=== PATIENT | male | born 1940 | race Caucasian/White ===

== ENCOUNTER 2020-07-04 14:56 | Emergency (ER) | payer MEDICARE, BC, SELFPAY ==
[2020-07-04 15:03] VITALS: BP 163/78; PULSE 60; RESP 18; TEMP 36.6; O2SAT 95
--- NOTE | 2020-07-04 15:18 | DI.RAD.S_ITS ---
PROCEDURE: XR FINGER LT MIN 2V INDICATIONS: index laceration from a metal TECHNIQUE: AP hand, 2 views of the left index finger(s) acquired. COMPARISON: None. FINDINGS: Bones: No acute fractures or dislocations. Degenerative changes of the left hand most pronounced in the triscaphe joint, 1st carpometacarpal joint, 1st metacarpophalangeal joint, and 1st interphalangeal joint. No suspicious bony lesions. Soft tissues: There is a soft tissue defect overlying the dorsal aspect of the left index finger at the level of the proximal interphalangeal joint. No underlying osseous abnormalities or radiopaque soft tissue foreign bodies. No suspicious soft tissue calcifications. IMPRESSION: Soft tissue defect involving the dorsal aspect of the left index finger at the level of the proximal interphalangeal joint without underlying osseous abnormalities or radiopaque soft tissue foreign bodies. Dictated by: Piotr Marshall M.D. on 07/04/2020 at 15:39 Approved by: Piotr Marshall M.D. on 07/04/2020 at 15:42
[2020-07-04] MEDS: LIDO 1%/SOD BICARB 8.4% (10ML) 10 ML SYRINGE INJ (15:54)
[2020-07-04] MEDS: BACITRACIN OINT 0.9 GM PCKT 1 APPLIC TOP (15:55)
--- NOTE | 2020-07-04 16:18 | ED.WOUNDLAC ---
HPI - Wound/Laceration <GINA Avila - Last Filed: 07/04/20 16:29> General Chief Complaint: Wound/Laceration Stated Complaint: lt index finger cut Time Seen by Provider: 07/04/20 15:02 Source: patient Mode of arrival: Ambulatory Limitations: no limitations History of Present Illness HPI narrative: This is a pleasant 79-year-old male, nonsmoker, who has noncontributory medical history presents to ED with chief complain of laceration on dorsal aspect of left index finger from a metal of the lawnmower. Patient reports he was trying to loosen the wheel of the bundle packer and accidentally had lacerated non dominant hand left index finger. Last tetanus immunization was September this year. Patient reports is able to flex and extend finger without difficulty and has intact sensation. Patient also minor abrasion on right little fingers. Related Data Home Medications Medication Instructions Recorded Confirmed Lumigan 1 drp EAR-BOTH 07/04/20 Pepcid AC PRN PRN 07/04/20 atorvastatin [Lipitor] 20 mg PO DAILY 07/04/20 07/04/20 Allergies Allergy/AdvReac Type Severity Reaction Status Date / Time Sulfa (Sulfonamide Allergy Verified 07/04/20 15:06 Antibiotics) Review of Systems <GINA Avila - Last Filed: 07/04/20 16:29> Review of Systems Narrative: General: Denies fever, chills, fatigue, malaise, sweats. Respiratory: Denies dyspnea, cough, wheezing, hemoptysis, sputum. Cardiovascular: Denies chest pain, palpitations, orthopnea, edema. Musculoskeletal: Denies weakness, joint pain or bony pain. Skin: See HPI Patient History <GINA Avila - Last Filed: 07/04/20 16:29> Medical History (Updated 07/04/20 @ 16:21 by GINA Avila) Glaucoma (Acute) Hyperlipidemia (Acute) Social History Smoking Status: Never smoker Smoking Status: Never smoker alcohol intake frequency: 0-2 drinks per day Exam <GINA Avila - Last Filed: 07/04/20 16:29> Narrative Exam Narrative: General appearance: well developed, well nourished, in no acute distress. Head: normocephalic, atraumatic, no scalp lesions, non-tender. ENT: Hearing grossly intact. Airway patent. Neck/Thyroid: neck supple, full range of motion, no visible masses or meningeal signs. No JVD, non-tender without lymphadenopathy. Skin: 3 cm linear laceration on dorsal aspect of left index finger crossing proximal and medial phalanx. No obvious foreign body appreciated. Warm and dry and appropriate color for ethnicity. Heart: no clubbing, no cyanosis, no edema. S1 and S2 normal. RRR w/o murmurs, clicks, or bruits. Lungs: Breathing even and unlabored. No stridor. No accessory muscles used. Able to speak in full sentences. Chest: normal shape and expansion. Abdomen: non-obese, non-distended. Neurologic: alert and oriented. Cognitive exam, [employer] and PNS grossly intact on informal exam. Psych: good eye contact, normal affect. Initial Vital Signs Initial Vital Signs: Vital Signs Temperature 97.9 F 07/04/20 15:03 Pulse Rate 60 07/04/20 15:03 Respiratory Rate 18 07/04/20 15:03 Blood Pressure 163/78 H 07/04/20 15:03 Pulse Oximetry 95 07/04/20 15:03 Extrem Left upper extremity: hand Details: abnormal to inspection, normal capillary refill, neuromotor exam normal, neurosensory exam normal, vascular exam Details: radial pulse present, normal ROM of fingers, no swelling and laceration; no foreign bodies <Marylu Arredondo DO - Last Filed: 07/05/20 08:23> Initial Vital Signs Initial Vital Signs: Vital Signs Temperature 97.9 F 07/04/20 15:03 Pulse Rate 60 07/04/20 15:03 Respiratory Rate 18 07/04/20 15:03 Blood Pressure 163/78 H 07/04/20 15:03 Pulse Oximetry 95 07/04/20 15:03 Procedures <GINA Avila - Last Filed: 07/04/20 16:29> Laceration Repair Laceration 1: Site: hand (Left hand dorsal aspect index finger) Side (If applicable): left Size (cm): 3 Description: linear Depth: simple, single layer Local Anesthetic: lidocaine 1% and with bicarb Amount of anesthesia used (mL): 3 (Digital block) Pre-repair: wound explored and irrigated extensively Skin layer closed with: nylon Size (cm): 4-0 Number of sutures: 4 Technique: simple, interrupted Scores <[facility] - Last Filed: 07/04/20 16:29> GCS [place] coma scale eye opening: Spontaneous Maggie coma scale verbal response: Orientated Maggie coma scale motor response: Obey commands Maggie coma scale total score: 15 Course <[facility] - Last Filed: 07/04/20 16:29> Orders Ordered: Discontinued Medications Bacitracin (Bacitracin) 1 applic TOP NOW ONE Stop: 07/04/20 15:19 Last Admin: 07/04/20 15:55 Dose: 1 applic Documented by: JALYN Lidocaine/Sodium Bicarbonate (Buffered Lidocaine 10 Ml Syr) 10 ml INJ NOW ONE Stop: 07/04/20 15:19 Last Admin: 07/04/20 15:54 Dose: 10 ml Documented by: JALYN Vital Signs Vital signs: Vital Signs - 8 hr 07/04/20 15:03 Temperature 97.9 F Pulse Rate 60 Respiratory Rate 18 Blood Pressure 163/78 H Pulse Oximetry 95 <Marylu Arredondo DO - Last Filed: 07/05/20 08:23> Orders Ordered: Discontinued Medications Bacitracin (Bacitracin) 1 applic TOP NOW ONE Stop: 07/04/20 15:19 Last Admin: 07/04/20 15:55 Dose: 1 applic Documented by: JALYN Lidocaine/Sodium Bicarbonate (Buffered Lidocaine 10 Ml Syr) 10 ml INJ NOW ONE Stop: 07/04/20 15:19 Last Admin: 07/04/20 15:54 Dose: 10 ml Documented by: JALYN Vital Signs Vital signs: Vital Signs - 8 hr 07/04/20 15:03 Temperature 97.9 F Pulse Rate 60 Respiratory Rate 18 Blood Pressure 163/78 H Pulse Oximetry 95 MDM - Wound/Laceration <[facility] - Last Filed: 07/04/20 16:29> Differential Diagnosis Differential diagnosis: Likely laceration Medical Records Attestation: I reviewed the patient's medical records. Imaging Data XR-Finger LT: Radiologist's Impression: [address] [address] XRay Report Signed Patient: Nevaeh Turner [facility]#: [id number] : 3Acct:[id number] Age/Sex: 79 / MDate of Service: 07/04/20 Loc: ED Accession Number: [id number] Procedure: XR finger LT min 2V Ordering Provider: Roman Watson PROCEDURE: XR FINGER LT MIN 2V INDICATIONS: index laceration from a metal TECHNIQUE: AP hand, 2 views of the left index finger(s) acquired. COMPARISON: None. FINDINGS: Bones: No acute fractures or dislocations. Degenerative changes of the left hand most pronounced in the triscaphe joint, 1st carpometacarpal joint, 1st metacarpophalangeal joint, and 1st interphalangeal joint. No suspicious bony lesions. Soft tissues: There is a soft tissue defect overlying the dorsal aspect of the left index finger at the level of the proximal interphalangeal joint. No underlying osseous abnormalities or radiopaque soft tissue foreign bodies. No suspicious soft tissue calcifications. IMPRESSION: Soft tissue defect involving the dorsal aspect of the left index finger at the level of the proximal interphalangeal joint without underlying osseous abnormalities or radiopaque soft tissue foreign bodies. Dictated by: Piotr Marshall M.D. on 07/04/2020 at 15:39 Approved by: Piotr Marshall M.D. on 07/04/2020 at 15:42 [facility] Narrative Medical decision making narrative: This is a 79-year-old gentleman who presents to ED with laceration on non dominant hand left dorsal aspect of index finger from a metal on bundle packer. 3 cm laceration was repaired by 4 simple interrupted sutures. Please see procedure note. Patient tolerated the procedure well. X-ray test was negative for fractures, foreign bodies or dislocation. Considered antibiotic medication treatment but in shared decision making will monitor for signs and symptoms for infection at this time. Return precautions discussed with the patient and patient advised [facility] when he returns to home in [place] for wound recheck and suture removal in 7-10 days. Patient verbalized understanding in agreement with the treatment plan. Discharge Plan Departure Patient Disposition: Home Clinical Impression: Laceration of finger Qualifiers: Encounter type: initial encounter Finger: index finger Damage to nail status: without damage Foreign body presence: without foreign body Laterality: left Qualified Code(s): S61.211A - Laceration without foreign body of left index finger without damage to nail, initial encounter Discharge Date/Time: 07/04/20 16:46 Instructions: DI for Laceration Repair Activity Restrictions/Additional Instructions: You have been diagnosed with [3 cm finger laceration on dorsal aspect non dominant hand left index finger. No fractures or foreign body appreciated in x-ray test. Laceration has been repaired by 4 sutures.]. What to do: *Take your medications as directed. You can take [id number] Tylenol and or Motrin as needed for discomfort. Please do not get your wound soaked in the water until suture removal. Keep your dressing intact for next 24 hrs. After then, you could remove your dressing, wash with soap and water. Pat dry with clean paper towel and dress it with antibiotic ointment. You can change dressing as needed and daily. Please monitor for signs and symptoms for infection such as increasing redness, swelling, warmth, pain, fever, purulent discharge. If this occurs, please return to ED or follow up with your primary care physician since your wound may be gotten infected. Please follow up with your primary care provider in 2-3 days for recheck wound. Your suture should be removed [7-10 ] days. This can be done by your primary provider, walk-in clinic or here in ED. Please keep your wound clean, dry and intact all times. *Return to ED if you have any new, worsening, or concerning symptoms, such as [signs and symptoms for infection as above, worsening pain, chest pain, breathing difficulty or any acute concerns]. Prescriptions: No Action atorvastatin [Lipitor] 20 mg Tablet 20 mg PO DAILY RF: 0 Lumigan 1 drp EAR-BOTH RF: 0 Pepcid AC PRN PRN (Reason: Acid Reflux) RF: 0 <Marylu Arredondo, - Last Filed: 07/05/20 08:23> [facility] Attending Kunal Attestation: I was immediately available in the department for consultation. Documentation has been reviewed. I agree with assessment and plan.
[2020-07-04 16:46] VITALS: BP 143/67; PULSE 60; RESP 16; O2SAT 99
--- NOTE | 2020-07-08 10:23 | PC.NURSE ---
Pt called to clarify discharge instructions. Questions answered w/ verbalized understanding. Encoruaged to f/u as needed and indicated and return for any needs or concerns.
== END 2020-07-04 16:46 | disposition home or self-care (01) ==
PROVIDERS: Emergency Provider Nurse Practitioner Family
DX: S61.211A Laceration without foreign body of left index finger without damage to nail, initial encounter (principal); W31.9XXA Contact with unspecified machinery, initial encounter
CPT/HCPCS: 12002; 73140; 99283; 99284